=== PATIENT | female | born 1940 | race Caucasian/White ===

== ENCOUNTER 2021-04-26 11:52 | Emergency (ER) | payer OTHER, SELFPAY ==
[2021-04-26 11:57] VITALS: PULSE 0; RESP 0; O2SAT 0
--- NOTE | 2021-04-26 12:16 | ED_ITS ---
HPI - CPR General Chief Complaint: Cardiac Arrest/CPR Stated Complaint: CODE BLUE Time Seen by Provider: 04/26/21 11:56 Source: EMS Mode of arrival: EMS Limitations: clinical condition () and other History of Present Illness HPI narrative: Patient is an 81-year-old male brought in by EMS secondary to cardiorespiratory arrest. According to EMS they were called longterm due to an unresponsive patient upon their arrival patient was in asystole, bystander CPR was done. EMS continue to work on her for 20 more minutes was given approximately 3 rounds of epi, patient remained in asystole, resuscitation was stopped at that time. Related Data Allergies Allergy/AdvReac Type Severity Reaction Status Date / Time No Known Allergies Allergy Unverified 12/16/15 20:31 Review of Systems Review of Systems: ROS unobtainable: Yes other (Disease) PMFSH Comments Past medical history: Unknown History: Unknown Social history: Lives at nursing Exam Narrative: Patient unresponsive Pupils fixed and dilated No spontaneous respiration No pulse Course Vital Signs Vital signs: Vital Signs Pulse Rate 0 L 04/26/21 11:57 Respiratory Rate 0 L 04/26/21 11:57 Pulse Oximetry 0 L 04/26/21 11:57 Pulse Rate 0 L 04/26/21 11:57 Respiratory Rate 0 L 04/26/21 11:57 Pulse Oximetry 0 L 04/26/21 11:57 Discharge Plan Discharge Clinical Impression: Cardiac arrest Patient Disposition: Condition: Follow-up/Referrals: Stacey,Madi Singh MD [Primary Care Provider] - Time of Disposition: 12:25
--- NOTE | 2021-04-26 13:13 | PC.NURSE ---
Per [facility] body may be released.
--- NOTE | 2021-04-26 13:34 | PC.NURSE ---
1138 time of 1216 [facility] called [address] [employer] [facility] called. 1301 [facility] called and stated pt is not a candidate 1335 Dr. Joseph aware, family states they will use [facility], hospice registered nurse made aware.
--- NOTE | 2021-04-26 14:02 | PC.NURSE ---
post mortem care completed. coffeen brockway called and made aware that patient is in the morgue.
[2021-04-26 14:05] VITALS: PULSE 0
== END 2021-04-26 14:06 | disposition expired ==
PROVIDERS: Emergency Provider Emergency Medicine; PCP Family Medicine Sports Medicine
DX: I46.9 Cardiac arrest, cause unspecified (principal)
CPT/HCPCS: 92950; 99283; 99285